=== PATIENT | female | born 1990 | race Two or more races ===

== ENCOUNTER 2020-03-28 09:26 | Outpatient (CLI) | payer OTHER | END 2020-03-28 23:59 | disposition home or self-care (01) | LOC: STAR 09:26 | PROVIDERS: ATTEND Obstetrics & Gynecology | DX: Z20.828 Contact with and (suspected) exposure to other viral communicable diseases (principal) | CPT/HCPCS: 87635 ==

== ENCOUNTER 2020-03-28 14:51 | Inpatient (IN) | payer BC, OTHER ==
[~2020-03-28] VITALS: Ht 154.9 cm; Wt 76.0 kg
[2020-04-04] MEDS ORDERED: FENTANYL PF 100 MCG/2ML IVPush PRN (22:00)
[2020-04-04] MEDS ORDERED: SODIUM CITRATE/CITRIC ACID 30 ML UDC PO PRN (22:00)
[2020-04-04] MEDS ORDERED: FENTANYL PF 100 MCG/2ML IV PRN (22:00)
[2020-04-04] MEDS ORDERED: TERBUTALINE 1 MG/ML, 1ML IVPush PRN (22:00)
[2020-04-04] MEDS: LACTATED RINGERS 1,000 ML IV SCH (22:00)
[2020-04-04] MEDS ORDERED: D5%-LACTATED RINGERS 1,000 ML IV SCH (22:00)
[2020-04-04] MEDS ORDERED: TERBUTALINE 1 MG/ML, 1ML SQ PRN (22:00)
[2020-04-04] MEDS ORDERED: CALCIUM CARBONATE 500 MG TAB.CHEW PO PRN (22:00)
[2020-04-04] MEDS ORDERED: OXYTOCIN 30U/ 0.9% NaCL 500ML 500 ML IV ONE (22:00)
[2020-04-04] MEDS ORDERED: ONDANSETRON 2MG/ML, 2ML IVPush PRN (22:00)
[2020-04-04 22:11] VITALS: BP 111/59
[2020-04-04 22:40] LABS: BASOPHILS % (AUTO) 1 % (0-1); EOSINOPHILS % (AUTO) 1 % (1-7); LYMPHOCYTES % (AUTO) 34 % (22-44); MEAN CORPUSCULAR HEMOGLOBIN 30.6 pg (27.0-34.8); MEAN PLATELET VOLUME 8.6 fL (7.4-10.4); MONOCYTES % (AUTO) 8 % (2-9); NEUTROPHILS % (AUTO) 57 % (42-75); PLATELET COUNT 266 x10^3/uL (130-400); RED BLOOD COUNT 3.87 x10^6/uL (3.82-5.3); RED CELL DISTRIBUTION WIDTH 15.2 % (9.6-15.2)
[2020-04-04 22:48] LABS: MD NO
[2020-04-04] MEDS ORDERED: MISOPROSTOL 25 MCG TABLET ONE (22:50)
[2020-04-04] MEDS: MISOPROSTOL 25 MCG TABLET VG PRN (22:53)
[2020-04-04] MEDS ORDERED: PREN-1 PO (23:39)
[2020-04-05] MEDS ORDERED: NEWBORN KIT ONE (03:27)
[2020-04-05] MEDS ORDERED: LIDOCAINE 1%, 20ML ONE (03:27)
[2020-04-05] MEDS ORDERED: OXYTOCIN 30U/ 0.9% NaCL 500ML 0 ML ONE (03:28)
[2020-04-05] MEDS ORDERED: MISOPROSTOL 200 MCG TABLET ONE (03:28)
[2020-04-05] MEDS ORDERED: MISOPROSTOL 25 MCG TABLET ONE (03:37)
[2020-04-05] MEDS: MISOPROSTOL 25 MCG TABLET VG PRN (03:47)
[2020-04-05] MEDS ORDERED: OXYTOCIN 30U/ 0.9% NaCL 500ML 500 ML IV PRN (08:30)
[2020-04-05] MEDS ORDERED: OXYTOCIN 30U/ 0.9% NaCL 500ML 500 ML ONE ×2 (08:39→18:02)
[2020-04-05] MEDS ORDERED: LACTATED RINGERS 1,000 ML IV SCH (09:00)
[2020-04-05] MEDS ORDERED: LACTATED RINGERS 1,000 ML IVBOLUS PRN (09:00)
[2020-04-05] MEDS ORDERED: FENTANYL/BUPIV./NS/PF 250 ML EPIDCONT SCH (09:00)
[2020-04-05] MEDS: PRENATAL VIT/IRON/FA 1 EACH TABLET PO SCH (09:00)
[2020-04-05] MEDS ORDERED: EPHEDRINE 50 MG/ML, 1ML IVPush PRN (09:00)
[2020-04-05] MEDS ORDERED: NALOXONE 0.4 MG/ML, 1ML IVPush PRN (09:00)
[2020-04-05] MEDS ORDERED: BUPIVACAINE 0.25% ONE (10:13)
[2020-04-05] MEDS ORDERED: FENTANYL/BUPIV./NS/PF 250 ML EPIDCONT ONE (10:13)
[2020-04-05] MEDS: LACTATED RINGERS 1,000 ML IV SCH (11:12)
[2020-04-05] MEDS ORDERED: ACETAMINOPHEN 325 MG TABLET PO PRN ×2 (15:30)
[2020-04-05] MEDS ORDERED: ONDANSETRON 2MG/ML, 2ML IV PRN (15:30)
[2020-04-05] MEDS ORDERED: MISOPROSTOL 200 MCG TABLET PR PRN (15:30)
[2020-04-05] MEDS ORDERED: DOCUSATE 100 MG CAPSULE PO PRN (15:30)
[2020-04-05] MEDS ORDERED: RHOGAM FROM BLOOD BANK 1 NOTE EA IM/IV ONE (15:30)
[2020-04-05] MEDS ORDERED: MAGNESIUM HYDROXIDE 8%, 30ML UDC PO PRN (15:30)
[2020-04-05] MEDS ORDERED: DIPH,PERTUSS(ACELL),TET VAC/PF NC IM-VACC PRN (15:30)
[2020-04-05] MEDS ORDERED: SIMETHICONE 80 MG CHEW TAB PO PRN (15:30)
[2020-04-05] MEDS ORDERED: OXYcodone/APAP 5/325MG TABLET PO PRN ×2 (15:30)
[2020-04-05] MEDS ORDERED: IBUPROFEN 600 MG TABLET ONE (17:03)
[2020-04-05] MEDS: IBUPROFEN 600 MG TABLET PO PRN ×2 (17:04→23:20)
[2020-04-05] MEDS: OXYTOCIN 30U/ 0.9% NaCL 500ML 500 ML IV SCH (18:04)
[2020-04-05 20:00] VITALS: BP 103/66
[2020-04-05 23:23] VITALS: BP 102/63
[2020-04-06] MEDS: OXYTOCIN 30U/ 0.9% NaCL 500ML 500 ML IV SCH (01:30)
[2020-04-06 04:16] VITALS: BP 95/59
[2020-04-06 05:02] LABS: BASOPHILS % (AUTO) 1 % (0-1); EOSINOPHILS % (AUTO) 1 % (1-7); LYMPHOCYTES % (AUTO) 21 % (22-44); MEAN CORPUSCULAR HEMOGLOBIN 30.9 pg (27.0-34.8); MEAN CORPUSCULAR HGB CONC 33.3 g/dL (32.4-35.8); MEAN PLATELET VOLUME 8.5 fL (7.4-10.4); MONOCYTES % (AUTO) 7 % (2-9); NEUTROPHILS % (AUTO) 71 % (42-75); PLATELET COUNT 190 x10^3/uL (130-400); RED BLOOD COUNT 3.03 x10^6/uL (3.82-5.3); RED CELL DISTRIBUTION WIDTH 15.8 % (9.6-15.2)
[2020-04-06 05:03] LABS: MD NO
[2020-04-06 08:00] VITALS: BP 110/74
[2020-04-06] MEDS: IBUPROFEN 600 MG TABLET PO PRN (08:08)
[2020-04-06] MEDS: PRENATAL VIT/IRON/FA 1 EACH TABLET PO SCH (08:08)
[2020-04-06] MEDS ORDERED: PRENATAL VIT/IRON/FA 1 EACH TABLET PO SCH (09:00)
[2020-04-06 12:00] VITALS: BP 106/67
== END 2020-04-06 17:23 | disposition home or self-care (01) | DRG 807 ==
LOC: LDIP 04-04 21:50 → 2NW 04-05 19:25
PROVIDERS: ADMIT Obstetrics & Gynecology; ATTEND Obstetrics & Gynecology
PROC: 10E0XZZ Delivery of Products of Conception, External Approach (ICD-10-PCS; principal; 2020-04-05)
PROC: 0KQM0ZZ Repair Perineum Muscle, Open Approach (ICD-10-PCS; 2020-04-05)
PROC: 10H07YZ Insertion of Other Device into Products of Conception, Via Natural or Artificial Opening (ICD-10-PCS; 2020-04-05)
PROC: 3E0R3BZ Introduction of Anesthetic Agent into Spinal Canal, Percutaneous Approach (ICD-10-PCS; 2020-04-05)
PROC: 00HU33Z Insertion of Infusion Device into Spinal Canal, Percutaneous Approach (ICD-10-PCS; 2020-04-05)
DX: O48.0 Post-term pregnancy (principal); Z37.0 Single live birth; O69.81X0 Labor and delivery complicated by cord around neck, without compression, not applicable or unspecified; Z3A.41 41 weeks gestation of pregnancy; Z20.828 Contact with and (suspected) exposure to other viral communicable diseases; O70.1 Second degree perineal laceration during delivery
CPT/HCPCS: 36415; J7121; 85025; 86592; 86850; 86900; 87635; G0378; J2590; J3010; J7120